=== PATIENT | female | born 1960 | race Caucasian/White ===

== ENCOUNTER 2018-12-05 16:52 | Observation (INO) | payer OTHER ==
[~2018-12-05] VITALS: Ht 177.8 cm; Wt 91.0 kg
[2018-12-05 17:19] VITALS: Ht 177.8 cm; Wt 91.0 kg
--- NOTE | 2018-12-05 17:27 | NUR ---
PER PT SHE WAS WALKING OUTSIDE AND FELL OVER A BOX. WHEN PT FELL SHE LANED ON HER LEFT WRIST AND DID NOT HIT HER HEAD. PT WENT TO GO SIT DOWN AND SHE FAINTED AND VOMITED 2X. PER MEDIC IN ROUTE TO ER PT FAINTED AGAIN. PER MEDIC 50 OF FENTANYL PUSHED, 4 OF ZOFRAN AND 900CC NS WAS IMPLIMENTED. PT HAD A BP 88/55 IN ROUTE. PT IS ALERT AND ORIENTED AA0X4. ANSWERING AND SPEAKING IN CLEAR AND FULL SENTENCES. VSS. BG OF 101. WILL CONTINUE TO MONITOR.
--- NOTE | 2018-12-05 17:58 | NUR ---
PT AMBULATED TO RESTROOM WITH STEADY GAIT. NO DISTRESS NOTED.
[2018-12-05 18:06] LABS: BASOPHIL % 0.6 % (0-2); PLATELET COUNT 275 x10^3mcL (130-400); RED CELL DISTRIBUTION WIDTH 13.6 % (11.5-14.5)
[2018-12-05 18:16] LABS: CALCIUM 8.9 mg/dL (8.5-10.1); CARBON DIOXIDE 28.3 mmol/L (21-32); CREATININE SERUM 1.2 mg/dL (0.6-1.0); POTASSIUM SERUM 4.3 mmol/L (3.5-5.1)
[2018-12-05 18:21] LABS: ALBUMIN 3.5 g/dL (3.4-5.0); BILIRUBIN TOTAL 0.48 mg/dL (0.20-1.00); TOTAL PROTEIN, SERUM 6.6 g/dL (6.4-8.2)
[2018-12-05 18:31] LABS: UA SPECIFIC GRAVITY 1.025 (1.005-1.035); microscopic required? YES; urine erythrocyte TRACE (NEGATIVE)
[2018-12-05 18:31] LABS: FREE T4 1.09 ng/dL (0.76-1.46); FREE THYROXINE INDEX 3.1 ug/dL (1.4-4.5); T4(THYROXINE) 8.3 ug/dL (4.7-13.3)
[2018-12-05 18:36] LABS: T3 TOTAL 1.14 ng/mL
--- NOTE | 2018-12-05 19:40 | NUR ---
SEE NOTES FOR MODERATE SEDATION RECORD FOR VITALS AND PROCEDURE NOTES. PT IS AWAKE ALERT AND ORIENTED X4. RESP E/U. NO DISTRESS NOTED. SINUS ALEXA ON MONITOR DR. RAMIREZ AWARE. SPLINT TO LEFT ARM IN PLACE. CAP REFILL BRISK TO LEFT HAND. WILL CONTINUE TO MONITOR. VSS.
--- NOTE | 2018-12-05 19:45 | NUR ---
REPORT GIVEN TO KEYANNA GRANGER TO RESUME CARE OF PT.
[2018-12-05] MEDS ORDERED: ZES10 PO (19:52)
--- NOTE | 2018-12-05 19:56 | NUR ---
GLADIS INFROMED END TIME IS NOT FILLED OUT FOR LITER RUNNING ON NS. 125ML/HR.
--- NOTE | 2018-12-05 20:03 | NUR ---
PT IS OBSERVED LAYING ON GURNEY IN POSITION OF COMFORT. PT IN NAD. BREATHING EVEN AND UNLABORED. PT IS A&OX4, SPEAKING FULL CLEAR SENTENCES. CM AND O2 MONITOR IN PLACE. WILL CONTINUE TO MONITOR.
--- NOTE | 2018-12-05 20:25 | NUR ---
PT REQUESTED BEING ABLE TO EAT. PER DR ASHLEY WANG FOR PT TO EAT. PT STATED "MY NEIGHBORS MIGHT BRING ME FOOD".
--- NOTE | 2018-12-05 22:07 | NUR ---
REPORT GIVEN TO TREVON GRANGER.
--- NOTE | 2018-12-05 22:09 | NUR ---
PT TRANSFERED AT THIS TIME IN NAD. BREATHING EVEN AND UNLABORED. PT IS A&OX4, SPEAKING FULL CLEAR SENTENCES. PT VERBALIZED UNDERSTANDING OF PLAN OF CARE. PT TRANSFERED VIA RBLACK LICK ACCOMPAINED BY EMT AND RN.
[2018-12-05 22:46] VITALS: BP 121/83
--- NOTE | 2018-12-05 22:57 | NUR ---
RECEIVED PT FROM ER. PT ADMIT FOR SYNCOPE, BRADYCARDIA, LEFT WRIST FX, PT IS A/O X4, VERBAL RESPONSIVE, ABLE TO TELL WHAT SHE NEEDS. LUNG SOUND CLEAR BILATERAL, NO COUGH, NO SOB, PT IS ON TELE 28, NSR, DENY ANY CHEST PAIN OR DISCOMFORT, BOWEL SOUND PRESENT ALL 4 QUADRANTS, NO DISTENTION, NO TENDER. PEDAL PULSE PRESENT BOTH FEET, PT LEFT LEG LYMPHODEMA, PT HAS LEFT ARM SOFT CAST DUE TO LEFT WRIST FX, PT DENY ANY PAIN AT THIS MOMENT, DENY ANY TINGLIING AND NUMBNESS. IV AT RIGHT HAND, NO LEAKING, NO INFILTRATION. ALL ADLS ASSIST, ALL NEED MET, CALL LIGHT IN REACH, WILL CONTINUE TO MONITOR.
--- NOTE | 2018-12-05 23:08 | NUR ---
DR SCOTT PAGED AND CALLED BACK,KNOWS ABOUT ADMISSION,NEED ADMIT ORDER.SAYS HE WILL PUT ADMIT ORDER,GIVE HIM 2 MINUTES,CHARGE NURSE AWARE.
--- NOTE | 2018-12-06 02:36 | NUR ---
IVF D5 1/2 NS AT 80 CC/ HOUR ORDERED.IV SITE PATENT R HAND.L LEG LYMPHOEDEMA NOTED ON ADMIT.HAS A STOCKING FROM HOME,OPENED ON ADMIT,NO SKIN BREAKDOWN.CALL LIGHT IN REACH.
[2018-12-06 05:19] VITALS: BP 119/76
--- NOTE | 2018-12-06 06:13 | NUR ---
I AND O MEASURED.NO DISTRESS THIS SHIFT.L ARM SOFT CAST IN PLACE.IVF INFUSING WELL.
[2018-12-06 06:46] LABS: BASOPHIL % 0.4 % (0-2); PLATELET COUNT 223 x10^3mcL (130-400); RED CELL DISTRIBUTION WIDTH 13.1 % (11.5-14.5)
[2018-12-06 06:50] LABS: GFR1 > 60 mL/min
--- NOTE | 2018-12-06 07:25 | NUR ---
LAB REPORTS GLUCOSE 581. BLOOD SUGAR CHECKED AT BEDSIDE 80. PT DENIES HX OF DIABETES. NO S/S OF ACUTE DISTRESS. NO CHILLS. NO FEVER. NO VUONG. NO DIZZINESS. NO N/V. NO SOB ON ROOM AIR. NO CHEST PAIN. CALM/COOPERATIVE. AMBULATORY TO RESTROOM GAIT STEADY. RETURNED BACK TO BED. AA/OX4. NO CHEST PAIN. SPLINT IN PLACE TO RUE. IV WNL, IV FLUIDS FLOWING. SCDS IN PLACE. INSTRUCTED PT TO USE CALL LIGHT TO CALL FOR ASSISTANCE PRN, PT VERBALIZED UNDERSTANDING. DENIES PAIN. WILL CONT. TO MONITOR.
[2018-12-06 09:21] VITALS: BP 118/85
[2018-12-06 09:25] VITALS: BP 126/74
[2018-12-06 10:20] LABS: CARBON DIOXIDE 26.6 mmol/L (21-32); CHLORIDE SERUM 107 mmol/L (98-107)
[2018-12-06 10:23] LABS: CALCIUM 8.6 mg/dL (8.5-10.1); GLUCOSE SERUM 84 mg/dL (74-106)
[2018-12-06 10:24] LABS: SODIUM SERUM 141 mmol/L (136-145)
[2018-12-06 10:25] LABS: POTASSIUM SERUM 4.2 mmol/L (3.5-5.1)
[2018-12-06 12:33] VITALS: BP 141/81
[2018-12-06 13:10] VITALS: BP 126/74
--- NOTE | 2018-12-06 13:12 | NUR ---
PT COMPLAINT OF MILD ACHING TO LUE, RATES 2/10, CONTINUOUS, WORSE WITH MOVMENT. GIVEN PAIN MED. SEE MAR. NO S/S OF ACUTE DISTRESS. SPLINT IN TACT TO LUE. NO CHEST PAIN. NO SOB ON ROOM AIR. IV WNL, IV FLUIDS FLOWING. AMBULATORY TO RESTROOM, GAIT STEADY. TOLERATED ACTIVITY WELL. VOIDS FREELY. BED IN LOW POSITION. CALL LIGHT WITHIN REACH. WILL CONT. TO MONITOR.
--- NOTE | 2018-12-06 13:54 | NUR ---
PT BEING DISCHARGED TO HOME. AWAKE, ALERT, ORIENTED X4. NO S/S OF ACUTE DISTRESS. NO SOB ON ROOM AIR. NO CHEST PAIN. PT HAS SPLINT TO LUE IN TACT. PULSES +2 BUE/BLE. CAP REFILLS <3 SEC BUE/BLE. SENSATION WNL TO BUE/BLE. SKIN WARM, DRY, AND INTACT TO SURROUNDING AREA OF SPLINT. PT REPORTS MILD PAIN 2/10, GIVEN PAIN MED EARLIER, SEE MAR. TOLERABLE AT THIS TIME. ACHING. WORSE WITH ACTIVITY. DISCHARGE EDUCATION PROVIDED TO PATIENT. INSTRUCTED TO FOLLOW UP WITH PCP AND ORTHOPEDIST. PT VERBALIZED UNDERSTANDING. PRESCRIPTION WITH PATIENT. BELONGINGS WITH PATIENT. NSR ON TELE. TELE REMOVED. IV WNL TO RH, NO REDNESS, NO SWELLING, NO INFILTRATION. IV REMOVED, CATHETER IN TACT. PRESSURE APPLIED. SITE WNL. WAITING FOR RIDE TO HOME.
== END 2018-12-06 14:26 | disposition home or self-care (01) | DRG 563 ==
LOC: ED 16:52 → DU 20:41
PROVIDERS: Specialist; ADMIT Internal Medicine Pulmonary Disease
DX: S52.502A Unspecified fracture of the lower end of left radius, initial encounter for closed fracture (principal); R55 Syncope and collapse; R00.1 Bradycardia, unspecified; I10 Essential (primary) hypertension; W01.0XXA Fall on same level from slipping, tripping and stumbling without subsequent striking against object, initial encounter; Y92.009 Unspecified place in unspecified non-institutional (private) residence as the place of occurrence of the external cause
CPT/HCPCS: 82962; 83880; 84439; G0378; G0500; J2405; J3490; J7030; J7050; Q0092

== ENCOUNTER 2019-06-18 19:05 | Emergency (ER) | payer OTHER ==
[~2019-06-18] VITALS: Ht 177.8 cm; Wt 97.5 kg
[~2019-06-18 19:05] MED LIST: ZES10 PO
[2019-06-18 19:22] VITALS: Ht 177.8 cm; Wt 97.5 kg
[2019-06-18 21:55] VITALS: BP 146/81
== END 2019-06-18 21:55 | disposition home or self-care (01) ==
LOC: ED 19:05
DX: S61.211A Laceration without foreign body of left index finger without damage to nail, initial encounter (principal); I10 Essential (primary) hypertension; W26.8XXA Contact with other sharp object(s), not elsewhere classified, initial encounter; Y93.89 Activity, other specified; Y92.89 Other specified places as the place of occurrence of the external cause; Y99.8 Other external cause status
CPT/HCPCS: 90715; J2001